=== PATIENT | female | born 1965 ===

== ENCOUNTER 2022-07-01 04:59 | Emergency (ER) | payer MEDICAID, OTHER ==
[2022-07-01] MEDS ORDERED: LIDOCAINE-EPINEPH-TETRACAINE 3 ML SYRINGE TOP STA (05:27)
[2022-07-01 05:38] LABS: BASOPHILS % (AUTO) 0.5 %; EOSINOPHILS % (AUTO) 0.5 %; HGB - HEMOGLOBIN 13.1 g/dL (12.0-16.0); LYMPHOCYTES # (AUTO) 1.3 10^3/uL (1.5-3.5); LYMPHOCYTES % (AUTO) 31.8 %; MEAN CORPUSCULAR HEMOGLOBIN 27.9 pg (27.0-31.0); MEAN CORPUSCULAR HGB CONC 33.6 g/dL (32.0-36.0); MEAN CORPUSCULAR VOLUME 83.2 fL (81.0-99.0); MEAN PLATELET VOLUME 9.3 fL (7.9-10.8); MONOCYTES # (AUTO) 0.3 10^3/uL (0.0-1.0); MONOCYTES % (AUTO) 8.5 %; NEUTROPHILS # (AUTO) 2.3 10^3/uL (1.5-6.6); NEUTROPHILS % (AUTO) 58.4 %; PLT - PLATELET COUNT 200 10^3/uL (130-450); RED BLOOD COUNT 4.69 10^6/uL (4.20-5.40)
--- NOTE | 2022-07-01 05:42 | ED Physician Documentation ---
PD HPI HEAD INJURY - Stated complaint Stated Complaint: GLF - Chief complaint Chief Complaint: Trauma Hd/Nk PD PAST MEDICAL HISTORY - Past Medical History Past Medical History: Yes - Allergies Allergies/Adverse Reactions: Allergies Allergy/AdvReac Type Severity Reaction Status Date / Time No Known Drug Allergies Allergy Verified 07/01/22 05:07 - Social History Does the pt smoke?: Yes Smoking Status: Current every day smoker Does the pt drink ETOH?: Yes ETOH Use: Beer - Immunizations Immunizations are current?: Yes - POLST Patient has POLST: No Results - Vitals Vitals: Vital Signs - 24 hr 07/01/22 05:07 Temperature 36.8 C Heart Rate 73 Respiratory 12 Rate Blood Pressure 114/65 O2 Saturation 94 Oxygen O2 Source Room air
[2022-07-01 05:49] LABS: ALBUMIN 3.8 g/dL (3.2-5.5); ALBUMIN/GLOBULIN RATIO 1.4 (1.0-2.2); BILIRUBIN,TOTAL 0.2 mg/dL (0.2-1.0); CALCIUM 8.7 mg/dL (8.5-10.3); CREATININE 0.6 mg/dL (0.4-1.0); ETOH - ETHANOL 32.6 mg/dL; POTASSIUM 2.9 mmol/L (3.5-5.0); TOTAL PROTEIN 6.5 g/dL (6.7-8.2)
--- NOTE | 2022-07-01 05:58 | ED Physician Documentation ---
PD HPI HEAD INJURY - Stated complaint Stated Complaint: GLF - Chief complaint Chief Complaint: Trauma Hd/Nk - History obtained from History obtained from: Patient, EMS - Additional information Additional information: Patient is a 56-year-old female with a history of anxiety presenting for evaluation of head injury. She is visiting her mother on [facility] and usually lives closer to [place]. She states that she has been feeling unwell since Sunday with a fever, cough, congestion, body aches. She took a COVID test which was negative. She has had decreased p.o. intake since that time. S he did have 2 beers last night. She recalls being on the porch vaping when she Started feeling lightheaded and had a syncopal episode. She did strike her head.She is unsure of exactly what time this occurred. Per EMS the fall was on the porch but they found the patient in side the home in the bathroom. Patient states her last tetanus was 2 years ago. She denies vomiting, diarrhea, dysuria, back pain. Review of Systems Constitutional: reports: Fever, Myalgias Cardiac: denies: Chest pain / pressure Respiratory: reports: Cough. denies: Dyspnea GI: denies: Abdominal Pain, Vomiting : denies: Dysuria Musculoskeletal: denies: Back pain Neurologic: reports: Syncope, Head injury PD PAST MEDICAL HISTORY - Past Medical History Past Medical History: Yes - Present Medications Home Medications: Ambulatory Orders Medication Instructions Recorded Confirmed HYDROcod/ACETAM 5/325 [Harwood 5/325] 1 ea PO Q6H PRN #18 tablet 07/01/22 Meloxicam [Mobic] 7.5 mg PO BID 10 Days #20 tablet 07/01/22 Ondansetron Odt [Zofran] 4 mg TL Q6H PRN #20 tablet 07/01/22 - Allergies Allergies/Adverse Reactions: Allergies Allergy/AdvReac Type Severity Reaction Status Date / Time No Known Drug Allergies Allergy Verified 07/01/22 05:07 - Social History Does the pt smoke?: Yes Smoking Status: Current every day smoker Does the pt drink ETOH?: Yes ETOH Use: Beer - Immunizations Immunizations are current?: Yes - POLST Patient has POLST: No PD ED PE NORMAL - General General: Alert and oriented X 3, No acute distress, Well developed/nourished - HEENT HEENT: PERRL, EOMI, Ears normal, Moist mucous membranes, Pharynx benign, Other (Left parieto-occipital scalp hematoma) - Neck Neck: Supple, no meningeal sign, No bony TTP. No: C-Spine cleared by NEXUS criteria (Patient reports EtOH use) - Cardiac Cardiac: RRR - Respiratory Respiratory: No respiratory distress, Clear bilaterally - Abdomen Abdomen: Soft, Non tender, Non distended - Derm Derm: Warm and dry - Extremities Extremities: No deformity, No tenderness to palpate - Neuro Neuro: Alert and oriented X 3, nursing student 2-12 intact, No motor deficit, No sensory deficit, Normal speech Eye Opening: Spontaneous Motor: Obeys Commands Verbal: Oriented GCS Score: 15 Results - Vitals Vitals: Vital Signs - 24 hr 07/01/22 07/01/22 07/01/22 05:07 06:00 08:43 Temperature 36.8 C Heart Rate 73 80 69 Respiratory 12 20 22 Rate Blood Pressure 114/65 118/66 119/71 O2 Saturation 94 98 96 If not protocol : Oxygen Flow, liters/minute 07/01/22 07/01/22 07/01/22 11:00 12:30 13:29 Temperature Heart Rate 74 67 102 H Respiratory 17 21 18 Rate Blood Pressure 136/90 H 106/62 142/90 H O2 Saturation 98 97 93 If not protocol 2 : Oxygen Flow, liters/minute Oxygen O2 Source Nasal cannula - EKG (time done) 0614 EKG releavant findings:: EKG personally interpreted by author of this note. Relevant findings are: Rate 74, normal sinus rhythm, motion artifact in several leads, no acute ischemic changes, No prior for comparison Rate: Rate (enter#) (74) Rhythm: NSR Intervals: No: Prolonged QT Ischemia: No: ST elevation c/w ischemia Compare to prior EKG: Old EKG unavailable - Labs Labs: Laboratory Tests 07/01/22 07/01/22 07/01/22 05:34 05:34 05:34 WBC 4.0 L RBC 4.69 Hgb 13.1 Hct 39.0 MCV 83.2 MCH 27.9 MCHC 33.6 RDW 13.0 Plt Count 200 MPV 9.3 Neut # (Auto) 2.3 Lymph # (Auto) 1.3 L [place] # (Auto) 0.3 Eos # (Auto) 0.0 Baso # (Auto) 0.0 Absolute Nucleated RBC 0.00 Nucleated RBC % 0.0 Sodium 128 L Potassium 2.9 L Chloride 94 L Carbon Dioxide 23 Anion Gap 11.0 BUN 14 Creatinine 0.6 Estimated GFR (MDRD) 103 Glucose 114 H Calcium 8.7 Magnesium 1.9 Total Bilirubin 0.2 AST 28 ALT 23 Alkaline Phosphatase 74 Total Protein 6.5 L Albumin 3.8 Globulin 2.7 Albumin/Globulin Ratio 1.4 Lipase 35 Ethyl Alcohol 32.6 Procedures - Laceration (location) R parietal scalp Length in cm: 2 Wound type: Irregular Anesthesia: LET, Lidocaine 1% with epi Wound preparation: Hibiclens, Irrigated copiously NS Skin layer closure: [place] (4) Other: Patient tolerated well, No complications, Neurovascular intact, Tetanus UTD PD Medical Decision Making - ED course Complexity details: reviewed results, re-evaluated patient, d/w patient ED course: 629 - Pt declined Xray chest. I explained it would be helpful to evaluate her heart and lungs given her episode of syncope as well as recent reports of fever/URI symptoms. Pt states that hospitals make her anxious and she just does not want to do it and understands why I am recommending one. Pt presenting for evaluation of syncope and head injury. Pt reports feeling under the weather for the past several days, has been in the area to take care of her mother, has had decreased PO intake. She had had 2 beers and She was vaping when she started to feel lightheaded and had a syncopal event. She did sustain a head injury. She clinically was not intoxicated upon arrival. CT head and cspine were reviewed by me and she has a small SAH. She has a scalp laceration that was closed with ramirez. EKG shows NSR. No CP or SOB. Pt refused chest XR. Labs were reviewed and significant for mild hyponatremia and hypokalemia, no prior for comparison and pt not on any meds that would account for this so suspect related to dehydration/decreased PO intake. pt given IV fluids and PO potassium which she tolerated. Suspect syncope also related to decreased PO intake. Pt denies headache prior to syncope and SAH appears to be traumatic vs spontaneous. Given SAH on CT head, plan to consult with NS at [facility] and likely plan for repeat CT scan in several hours. Pt signed out at shift change. Departure - Departure Disposition: 01 Home, Self Care Clinical Impression: Hyponatremia, Hypokalemia, Syncope Subarachnoid hemorrhage following injury Qualifiers: Encounter type: initial encounter Scalp laceration Qualifiers: Encounter type: initial encounter Qualified Code(s): S01.01XA - Laceration without foreign body of scalp, initial encounter Condition: Stable Instructions: ED Concussion, ED Laceration Scalp Stitch Or Stap Prescriptions: Meloxicam [Mobic] 7.5 mg PO BID 10 Days #20 tablet HYDROcod/ACETAM 5/325 [Harwood 5/325] 1 ea PO Q6H PRN #18 tablet PRN Reason: Pain Ondansetron Odt [Zofran] 4 mg TL Q6H PRN #20 tablet PRN Reason: Nausea / Vomiting Comments: The small amount of bleeding on the surface of the brain from the first CT scan had not worsened in perhaps slightly improved by the second scan just several hours later. The opinion from neurosurgery at [facility] is you can be discharged home. Certainly would want to return to the ER if significantly worsening headache blurred vision localized weakness repetitive vomiting or other concerns. That said you will have some concussive symptoms and likely to expect some lightheadedness, headaches, nausea and feeling a bit off balance. This will likely be for several days to a week or so. The scalp wound it is okay to wash and shower. Clean off the wound twice a day with soap and water, or peroxide and water. Apply some antibiotic ointment to it to keep it moist. Also to watch for signs of infection such as purulence, redness or increasing pain. Return to your primary care or the ER at the specified time for suture removal. Staple removal 8 to 10 days. I wrote prescriptions for some ondansetron nausea medicine to use every 6-8 hours if needed. Also anti-inflammatory twice daily to help with inflammation. To that add Tylenol every 4-6 hours if needed. I did write for limited amount of hydrocodone pain medication to use if needed. I sent your prescriptions to [facility] pharmacy up in [place]. I am prescribing a short course of narcotic pain medication for you. These are potentially dangerous and addictive medications that should be used carefully. These medications may constipate you. Take an [id number] stool softener such as docusate twice daily with plenty of water while taking these medications. If you go 24 hours without a bowel movement, take [id number] MiraLAX, per package instructions. Do not drink or drive while taking these medications. If you received narcotic or sedating medications while in the emergency department do not drive for 24 hours. Store this medication in a safe, secure place and out of reach of children. It is a violation of federal law to give or sell this medication to another person or to use in a manner other than prescribed. The ED will not refill narcotic prescriptions, including prescriptions lost or stolen. You can dispose of unwanted medications at the [facility]'s office or at several pharmacies such as [facility]. Discharge Date/Time: 07/01/22 14:18
[2022-07-01] MEDS ORDERED: SODIUM CHLORIDE 0.9% 1,000 ML IV STA (06:00)
[2022-07-01] MEDS ORDERED: POTASSIUM CHLORIDE 20 MEQ TABLET PO STA (06:17)
--- NOTE | 2022-07-01 10:33 | CT Report ---
PROCEDURE: HEAD WO INDICATIONS: interval exam, small subarachnoid TECHNIQUE: Noncontrast 4.5 mm thick angled axial sections acquired from the foramen magnum to the vertex. For r adiation dose reduction, the following was used: automated exposure control, adjustment of mA and/or kV according to patient size. COMPARISON: None. FINDINGS: Image quality: Excellent. CSF spaces: Basal cisterns are patent. No extra-axial fluid collections. Ventricles are normal in size and shape. Brain: No midline shift. No intracranial masses or hemorrhage. Carranza-white matter interface is norm al. Skull and face: Calvarium and visualized facial bones are intact, without suspicious lesions. Sinuses: Visualized sinuses and mastoids are clear. There is mucosal thickening right maxillary sin us. IMPRESSION: 1. No acute intracranial abnormality. 2. Right paranasal sinuses. Reviewed by: Bg Gupta on 07/01/2022 9:31 AM [facility] Approved by: Bg Gupta on 07/01/2022 9:31 AM [facility] Station ID: [id number]
--- NOTE | 2022-07-01 12:44 | CT Report ---
PROCEDURE: HEAD WO INDICATIONS: head injury/lac TECHNIQUE: Noncontrast 4.5 mm thick angled axial sections acquired from the foramen magnum to the vertex. For r adiation dose reduction, the following was used: automated exposure control, adjustment of mA and/or kV according to patient size. COMPARISON: None FINDINGS: Image quality: Excellent. CSF spaces: Basal cisterns are patent. No extra-axial fluid collections. Ventricles are normal in size and shape. Brain: No acute subarachnoid hemorrhage is present within the sulci of the anterolateral portion of t he right frontal lobe. This finding could also be artifactual. No intraparenchymal, epidural, or subd ural hemorrhage is appreciated. The sulci are otherwise unremarkable and the ventricles are normal. N o midline shift. No intracranial mass. Carranza-white matter interface is normal. Skull and face: Calvarium and visualized facial bones are intact, without suspicious lesions. Sinuses: The right maxillary sinus demonstrates mucosal thickening. Sinuses and mastoids are clear. IMPRESSION: 1. Possible small volume acute subarachnoid hemorrhage in the right frontal sulci, likely posttraumat ic. Recommend repeat CT in 4 hours. 2. No skull fracture. Large left parietal scalp hematoma. 3. Right maxillary sinusitis. Findings above correspond with preliminary findings by [facility]. Reviewed by: Bg Gupta on 07/01/2022 11:43 AM [facility] Approved by: Bg Gupta on 07/01/2022 11:43 AM [facility] Station ID: [id number]
--- NOTE | 2022-07-01 12:47 | CT Report ---
PROCEDURE: CERVICAL SPINE WO INDICATIONS: head injury TECHNIQUE: Noncontrast 3 mm thick sections acquired from the skull base to the T4 level. Sagittal and coronal r eformats were then constructed. For radiation dose reduction, the following was used: automated exp osure control, adjustment of mA and/or kV according to patient size. COMPARISON: None. FINDINGS: Image quality: Excellent. Bones: The patient was imaged lying in the lateral position. This may account for the reversal of cer vical lordosis. The alignment is otherwise unremarkable. No abnormality of the craniocervical junctio n or C1-C2 level is seen. No fracture or evidence of acute trauma is appreciated. Moderate degenerati ve changes. Primarily at the C6-7 level. No central canal narrowing. Mild facet arthropathy at severa l levels. Moderate C5-6 and C6-7 foraminal stenosis. Soft tissues: Prevertebral soft tissues are normal in thickness. No paravertebral hematomas. No ap ical pneumothoraces. IMPRESSION: Moderate degenerative changes with foraminal stenosis. No acute traumatic abnormality. No fracture. Findings above correspond with preliminary findings by [facility]. Reviewed by: Bg Gupta on 07/01/2022 11:46 AM [facility] Approved by: Bg Gupta on 07/01/2022 11:46 AM [facility] Station ID: [id number]
[2022-07-01] MEDS ORDERED: ACETAMINOPHEN 500 MG TABLET PO STA (13:11)
[2022-07-01] MEDS ORDERED: KETOROLAC 15 MG/ML VIAL IVP STA (13:11)
--- NOTE | 2022-07-01 13:15 | ED Physician Documentation ---
ED Addendum - Addendum Addendum: 07/01/22 13:12 Through the morning, the patient has been ambulatory to the bathroom a couple of times on her own balance and locomotion. She does complain of headache both in the area of the wound and generalized. No other focal deficits. She had a repeat CT of the head at 4-1/2 hours from the first. It is showing improvement or certainly no change in the area of bleeding in the right frontal. No other acute abnormalities. Contact had been made with [facility] to have neurosurgery evaluate. It taken them a while to get back to us and at this point they were able to look at both the first and second CT scans. Unfortunately the neurosurgeon was still in the OR but by description relays that we would be able to discharge the patient if there is no worsening and even slight improvement. I conveyed the findings to the patient. She is going to be having some nausea and headache. I told her we can prescribe antiemetic as well as anti- inflammatories and limited dose of pain medicine to help with symptoms. The name of the neurosurgeon was Uzair Cuellar. I will send prescription to [facility] pharmacy at the patient's direction.
[2022-07-01 13:30] VITALS: BP 142/90
== END 2022-07-01 14:18 | disposition home or self-care (01) ==
LOC: ED 04:59
DX: I60.9 Nontraumatic subarachnoid hemorrhage, unspecified (principal); R55 Syncope and collapse; S01.01XA Laceration without foreign body of scalp, initial encounter; W19.XXXA Unspecified fall, initial encounter; Y93.89 Activity, other specified; Y92.008 Other place in unspecified non-institutional (private) residence as the place of occurrence of the external cause; E87.1 Hypo-osmolality and hyponatremia; E87.6 Hypokalemia; F17.200 Nicotine dependence, unspecified, uncomplicated
CPT/HCPCS: 12001; 36415; 70450; 72125; 80053; 80320; 83690; 83735; 85025; 93005; 96374; 99284; A9270

== ENCOUNTER → 2022-07-01 | Outpatient (CLI) | payer MEDICAID | END | disposition critical access hospital (66) | LOC: EMS 04:45 | DX: S01.01XA Laceration without foreign body of scalp, initial encounter (principal); R41.0 Disorientation, unspecified; W18.30XA Fall on same level, unspecified, initial encounter; Y92.008 Other place in unspecified non-institutional (private) residence as the place of occurrence of the external cause; I95.9 Hypotension, unspecified | CPT/HCPCS: A0425; A0427; A0999 ==